=== PATIENT | male | born 1970 | race Caucasian/White ===

== ENCOUNTER 2018-09-08 02:57 | Emergency (ER) | payer SELFPAY ==
[2018-09-08 03:39] VITALS: RESP 18
[2018-09-08] MEDS ORDERED: Aspirin 325 mg EC Tablets PO STA (03:58)
[2018-09-08] MEDS ORDERED: Aluminum Hydroxide/Magnesium Hydroxide Susp (30 mL) PO STA (04:07)
[2018-09-08 04:09] LABS: BASO # 0.1 K/uL (0.0-0.2); BASO % 0.9 % (0.0-2.0); EOS # 0.3 K/uL (0.0-0.7); EOS % 4.3 % (0.0-4.0); HEMOGLOBIN 13.4 g/dL (12.0-18.0); LYMPH # 3.6 K/uL (1.0-4.3); LYMPH % 60.4 % (20.0-40.0); MEAN CELL VOLUME 78.7 fL (80.0-94.0); MEAN CORPUSCULAR HEMOGLOBIN 25.7 pg (27.0-31.0); MEAN CORPUSCULAR HGB CONC 32.7 g/dL (33.0-37.0); MEAN PLATELET VOLUME 8.5 fL (7.2-11.7); MONO # 0.3 K/uL (0.0-0.8); MONO % 5.6 % (0.0-10.0); NEUT # 1.7 K/uL (1.8-7.0); NEUT % 28.8 % (50.0-75.0); RBC 5.19 Mil/uL (4.40-5.90); RED CELL DISTRIBUTION WIDTH 14.7 % (11.5-14.5); WHITE BLOOD COUNT 5.9 K/uL (4.8-10.8)
[2018-09-08] MEDS ORDERED: Aluminum Hydroxide/Magnesium Hydroxide Susp (30 mL) ONE (04:13)
[2018-09-08 04:20] LABS: ALB/GLOB RATIO 1.5 (1.0-2.1); ALBUMIN 4.3 g/dL (3.5-5.0); ALT/SGPT 17 U/L (21-72); AST/SGOT 25 U/L (17-59); BLOOD UREA NITROGEN 15 mg/dL (9-20); CALCIUM 9.5 mg/dl (8.6-10.4); GFR NON-AFRICAN AMERICAN > 60
--- NOTE | 2018-09-08 05:16 | C.PDOC ---
History Of Present Illness 48 y/o male, with history of GERD, is brought in by ambulance and accompanied by son stating he woke up from his sleep and felt a burning chest pain. Patient denies history coronary disease. His son is at bedside translating. Patient also complains of hand paresthesia, whole body weakness, and feeling anxious. Time Seen by Provider: 09/08/18 03:11 Chief Complaint (Nursing): Shortness Of Breath History Per: EMS, Family (son) History/Exam Limitations: no limitations Onset/Duration Of Symptoms: Hrs Current Symptoms Are (Timing): Still Present Past Medical History Reviewed: Historical Data, Nursing Documentation, Vital Signs Vital Signs: Last Vital Signs Temp 98.4 F 09/08/18 03:06 Pulse 90 09/08/18 03:06 Resp 18 09/08/18 03:10 BP 145/95 H 09/08/18 03:06 Pulse Ox 100 09/08/18 03:10 Family History: States: No Known Family Hx - Social History Hx Alcohol Use: No Hx Substance Use: No - Immunization History Hx Tetanus Toxoid Vaccination: No Hx Influenza Vaccination: No Hx Pneumococcal Vaccination: No Review Of Systems Except As Marked, All Systems Reviewed And Found Negative. Constitutional: Positive for: Weakness, Other (weight gain). Negative for: Fever, Chills Cardiovascular: Positive for: Chest Pain. Negative for: Palpitations Respiratory: Negative for: Shortness of Breath Gastrointestinal: Positive for: Other (occasional GERD). Negative for: Nausea, Vomiting Neurological: Positive for: Other (sleep apnea and snoring) Physical Exam - Physical Exam Appears: Non-toxic, No Acute Distress, Other (older than stated age, balding) Skin: Warm, Dry Head: Atraumatic Eye(s): bilateral: Normal Inspection Oral Mucosa: Moist Throat: Other (small oropharynx) Neck: Supple, Other (large, thick neck) Cardiovascular: Rhythm Regular, No Murmur Respiratory: Normal Breath Sounds, No Rales, No Rhonchi, No Wheezing Gastrointestinal/Abdominal: Soft, No Tenderness, Other (obese) Extremity: Bilateral: Atraumatic, Normal Color And Temperature, Normal ROM Neurological/Psych: Oriented x3, Normal Speech ED Course And Treatment - Laboratory Results Result Diagrams: 09/08/18 04:04 09/08/18 04:04 Lab Results: Troponin I < 0.0120 ng/mL (0.00-0.120) 09/08/18 04:04 Total Bilirubin 0.3 mg/dL (0.2-1.3) 09/08/18 04:04 AST 25 U/L (17-59) 09/08/18 04:04 ALT 17 U/L (21-72) L 09/08/18 04:04 Alkaline Phosphatase 54 U/L (38-126) 09/08/18 04:04 Total Protein 7.1 g/dL (6.3-8.3) 09/08/18 04:04 Albumin 4.3 g/dL (3.5-5.0) 09/08/18 04:04 Globulin 2.8 gm/dL (2.2-3.9) 09/08/18 04:04 Albumin/Globulin Ratio 1.5 (1.0-2.1) 09/08/18 04:04 Lab Interpretation: Abnormal (mild wide RDW microcytic anemia? mixed anemia micro/macro) ECG: Interpreted By Me ECG Rhythm: Sinus Rhythm ECG Interpretation: Normal Rate From EC O2 Sat by Pulse Oximetry: 100 (RA) Pulse Ox Interpretation: Normal - Radiology CXR: Interpreted by Me CXR Interpretation: Yes: No Acute Disease Reevaluation Time: 05:19 Reassessment Condition: Improved Medical Decision Making Medical Decision Making: Plan: --EKG --Labs --Aspirin 325 mg PO --Maalox PO --Pepcid 20 mg IVP --Xanax PO Patient has medicine from [place] that hes supposed to take occasionally PRN for his GERD symptoms. ER course originally given xanax without improvement of symptoms. Further discussion revealed GERD history. Patient given pepcid and maalox with improvement of symptoms. Patient denies SOB or chest pressure. initially considered panic/anxiety Xanax given with minimal improvement further hx reveals h/o GERD pt taking only PRN meds Symptoms resolved with Pepcid/Maalox Will start Protonix Burning Chest discomfort concerning for ACS normal ekg and trop neg LOW susp ACS mixed pic micro/macro anemia ? FE def and macrocytosis Colonoscopy 4 yrs ago in [place] "neg" Refer for GI w/u and/or HemeOnc PRN NAZARIO: Significant weight gain, snoring, awakening startled Refer for Sleep Study Disposition Doctor Will See Patient In The: Office Counseled Patient/Family Regarding: Studies Performed, Diagnosis - Disposition Referrals: Sukhjinder Esteves MD [Staff Provider] - Angelica Diana MD [Staff Provider] - Mo Moreno [Staff Provider] - Disposition: HOME/ ROUTINE Disposition Time: 05:23 Condition: GOOD Additional Instructions: further hx reveals h/o GERD pt taking only PRN meds Symptoms resolved with Pepcid/Maalox Start Protonix daily (take in AM) Maalox 30 cc's (one tablespoon) 4-5x/day as needed Follow-up with Dr. Moreno- Gastroenterology Call for appt Burning Chest discomfort concerning for ACS normal ekg and trop neg LOW susp ACS Continue weight loss mixed pic micro/macro anemia ? FE def and macrocytosis Colonoscopy 4 yrs ago in [place] "neg" Refer for GI w/u and/or HemeOnc PRN NAZARIO: Significant weight gain, snoring, awakening startled Refer for Sleep Study Call Dr. Esteves to schedule Sleep Study Prescriptions: Pantoprazole Sodium [Protonix] 20 mg PO DAILY #30 ect Instructions: Sleep Apnea, Acid Reflux (Gastroesophageal Reflux Disease), Adult (DC) Forms: [employer] ([employer]) - Clinical Impression Clinical Impression: Chest discomfort - Scribe Statement The provider has reviewed the documentation as recorded by the Javad Hart Provider Attestation: All medical record entries made by the Portiaibe were at my direction and personally dictated by me. I have reviewed the chart and agree that the record accurately reflects my personal performance of the history, physical exam, medical decision making, and the department course for this patient. I have also personally directed, reviewed, and agree with the discharge instructions and disposition.
[2018-09-08 05:38] VITALS: BP 123/75; PULSE 75; TEMP 98.3
[2018-09-08 06:25] VITALS: O2SAT 100
--- NOTE | 2018-09-09 10:57 | CARD ---
APPROVED REPORT Date of service: 09/08/2018 EKG Measurement Heart [id number] <Conclusion> Normal sinus rhythm Normal ECG
== END 2018-09-08 05:38 | disposition home or self-care (01) ==
LOC: C.ER 02:57
DX: R07.89 Other chest pain (principal)